=== PATIENT | female | born 1970 | race Caucasian/White ===

== ENCOUNTER 2019-05-09 14:43 | Emergency (ER) | payer SELFPAY ==
[~2019-05-09] VITALS: Ht 160 cm; Wt 83.9 kg
[2019-05-09 14:47] VITALS: Ht 160 cm; Wt 83.9 kg
[2019-05-09 16:31] VITALS: BP 144/72
== END 2019-05-09 16:31 | disposition home or self-care (01) ==
LOC: ED 14:43
DX: I83.12 Varicose veins of left lower extremity with inflammation (principal); E11.9 Type 2 diabetes mellitus without complications
CPT/HCPCS: J0696; Q0092

== ENCOUNTER 2019-05-17 19:14 | Emergency (ER) | payer SELFPAY ==
[~2019-05-17] VITALS: Ht 162.6 cm; Wt 90.7 kg
[2019-05-17 19:41] VITALS: Ht 162.6 cm; Wt 90.7 kg
[2019-05-18 01:30] VITALS: BP 141/113
== END 2019-05-18 01:30 | disposition home or self-care (01) ==
LOC: ED 19:14
DX: I87.8 Other specified disorders of veins (principal); E11.9 Type 2 diabetes mellitus without complications; Z88.2 Allergy status to sulfonamides
CPT/HCPCS: J1885